=== PATIENT | male | born 1930 | race Caucasian/White ===

== ENCOUNTER 2016-10-22 20:48 | Inpatient (IN) | payer MEDICARE, OTHER ==
[~2016-10-22 20:48] MED LIST: BREO ELLIP1 PUFF/DOS IH; COUMADIN DPS2 MG PO; PROAIR HFA8.5 GM IH; ZOCOR DPS20 MG PO; [UNRECOGNIZED DRUG - OTHER] PO
[2016-10-25] MEDS ORDERED: COUMADIN DPS2 MG PO (11:55)
[2016-10-25] MEDS ORDERED: PROTONIX40 MG PO (11:55)
[2016-10-25] MEDS ORDERED: COLACE-DPS100 MG PO (12:38)
[2016-10-25] MEDS ORDERED: CIPRO DPS250 MG PO (12:38)
[2016-10-25] MEDS ORDERED: TYLENOL DPS325 MG PO (12:39)
[2016-10-25] MEDS ORDERED: MAALOX DPS30 ML PO (12:39)
== END 2016-10-25 09:50 | disposition home or self-care (01) | DRG 690 ==
DX: N39.0 Urinary tract infection, site not specified (principal); I48.0 Paroxysmal atrial fibrillation; J44.9 Chronic obstructive pulmonary disease, unspecified; B96.20 Unspecified Escherichia coli [E. coli] as the cause of diseases classified elsewhere; I10 Essential (primary) hypertension; E78.5 Hyperlipidemia, unspecified; K21.9 Gastro-esophageal reflux disease without esophagitis; Z87.891 Personal history of nicotine dependence; Z79.01 Long term (current) use of anticoagulants